=== PATIENT | female | born 1985 | race Two or more races ===

== ENCOUNTER 2018-06-09 05:27 | Day surgery (SDC) | payer OTHER ==
[~2018-06-09] VITALS: Ht 170.2 cm; Wt 66.8 kg
[~2018-06-09 05:27] MED LIST: [UNRECOGNIZED DRUG - OTHER] PO
[2018-06-09] MEDS ORDERED: LACTATED RINGERS 1,000 ML IV SCH (06:17)
[2018-06-09 06:25] LABS: HCG UR SG 1.024 (1.003-1.030)
[2018-06-09 06:33] VITALS: BP 117/73
[2018-06-09] MEDS ORDERED: FENTANYL PF 100 MCG/2ML ONE (07:00)
[2018-06-09] MEDS ORDERED: ONDANSETRON ODT 8 MG PO ONE (07:00)
[2018-06-09] MEDS ORDERED: ACETAMINOPHEN 500 MG TABLET PO ONE (07:00)
[2018-06-09] MEDS ORDERED: MIDAZOLAM 1 MG/ML, 2ML ONE (07:03)
[2018-06-09] MEDS ORDERED: LIDOCAINE 1%-EPI 1:100K, 30ML ONE (07:03)
[2018-06-09] MEDS ORDERED: SUCCINYLCHOLINE 20 MG/ML, 10ML ONE (07:17)
[2018-06-09] MEDS ORDERED: DEXAMETHASONE 4 MG/ML, 1ML ONE ×3 (07:17)
[2018-06-09] MEDS ORDERED: CEFAZOLIN 1,000 MG ONE ×2 (07:17)
[2018-06-09] MEDS ORDERED: LIDOCAINE-MPF 2% ,5ML ONE (07:18)
[2018-06-09] MEDS ORDERED: ROCURONIUM 10 MG/ML,10ML ONE (07:22)
[2018-06-09] MEDS ORDERED: EPHEDRINE 50 MG/ML, 1ML IVPush PRN (07:30)
[2018-06-09] MEDS ORDERED: MORPHINE SULFATE 4 MG/ML, 1ML IVPush PRN (07:30)
[2018-06-09] MEDS ORDERED: PROMETHAZINE 12.5 MG SUPP PR PRN (07:30)
[2018-06-09] MEDS ORDERED: FENTANYL PF 100 MCG/2ML IV PRN (07:30)
[2018-06-09] MEDS ORDERED: LABETALOL 5MG/ML, 20ML IV PRN (07:30)
[2018-06-09] MEDS ORDERED: LORazepam 2 MG/ML, 1ML IVPush PRN (07:30)
[2018-06-09] MEDS ORDERED: MIDAZOLAM 1 MG/ML, 2ML IV PRN (07:30)
[2018-06-09] MEDS ORDERED: HYDROmorphone 1 MG/ML, 1ML IV PRN (07:30)
[2018-06-09] MEDS ORDERED: OXYcodone 5 MG/5 ML ORAL.SOL UDC PO PRN (07:30)
[2018-06-09] MEDS ORDERED: PROMETHAZINE 25 MG/ML, 1ML IV PRN (07:30)
[2018-06-09] MEDS ORDERED: hydrALAzine 20 MG/ML, 1ML IV PRN (07:30)
[2018-06-09] MEDS ORDERED: MEPERIDINE/PF 25MG/0.5ML IVPush PRN (07:30)
[2018-06-09] MEDS ORDERED: ALBUTEROL SULFATE 2.5 MG/3 ML NPPB PRN (07:30)
== END 2018-06-09 11:45 | disposition home or self-care (01) ==
LOC: OR 05:27 → OUT 11:45
PROVIDERS: ATTEND Obstetrics & Gynecology Gynecology
DX: Z30.2 Encounter for sterilization (principal)
CPT/HCPCS: 58661; 81025; 88302; J0330; J1100; J2250; J3010; J3490; J7120; Q0162; J0690